=== PATIENT | female | born 1935 | race Caucasian/White ===

== ENCOUNTER 2022-03-28 10:11 | Inpatient (IN) | payer MEDICARE ==
--- NOTE | 2022-03-28 11:00 | ED ---
General Adult HPI - General Chief complaint: Shortness of Breath Stated complaint: SOB,ABD Pain Time Seen by Provider: 03/28/22 10:25 Source: patient, RN notes reviewed, old records reviewed Mode of arrival: wheelchair Limitations: no limitations - History of Present Illness Initial comments: This is an 86 her old female presents emergency department stating that she is not feeling well. Patient states she's mildly nauseated. Patient states she also feels a little more short of breath and has a slight sore throat. This is been ongoing for 2 days. Patient states he just feels terrible all over. Patient denies abdominal pain she states is just nausea. Patient denies any vomiting or diarrhea. Patient states there is a little dysuria but no hematuria or urinary frequency. Patient denies lightheadedness or dizziness. Patient denies any chest pain. Patient states she's normally on oxygen home because of pulmonary fibrosis. Patient denies any back pain. Patient states she does have a mild headache patient denies any numbness or weakness. - Related Data Allergies Allergy/AdvReac Type Severity Reaction Status Date / Time Sulfa (Sulfonamide Allergy Unknown Verified 03/28/22 10:27 Antibiotics) Review of Systems ROS Statement: Those systems with pertinent positive or pertinent negative responses have been documented in the HPI. ROS Other: All systems not noted in ROS Statement are negative. Past Medical History Past Medical History: Hypertension Additional Past Medical History / Comment(s): pulmonary fibrosis History of Any Multi-Drug Resistant Organisms: None Reported Past Surgical History: Orthopedic Surgery, Pacemaker Past Psychological History: No Psychological Hx Reported Smoking Status: Never smoker Past Alcohol Use History: Occasional Past Drug Use History: None Reported General Exam - General Exam Comments Initial Comments: GENERAL: Patient is well-developed and well-nourished. Patient is nontoxic and well- hydrated and is in mild distress. I took an oral temperature the patient was 101.7 ENT: Neck is soft and supple. No significant lymphadenopathy is noted. Oropharynx is clear. Moist mucous membranes. Neck has full range of motion without eliciting any pain. EYES: The sclera were anicteric and conjunctiva were pink and moist. Extraocular movements were intact and pupils were equal round and reactive to light. Eyelids were unremarkable. PULMONARY: Unlabored respirations. Good breath sounds bilaterally. Patient has crackles bilateral bases CARDIOVASCULAR: There is a regular rate and rhythm without any murmurs gallops or rubs. ABDOMEN: Soft and nontender with normal bowel sounds. SKIN: Skin is clear with no lesions or rashes and otherwise unremarkable. NEUROLOGIC: Patient is alert and oriented x3. Cranial nerves II through XII are grossly intact. Motor and sensory are also intact. Normal speech, volume and content. Symmetrical smile. MUSCULOSKELETAL: Normal extremities with adequate strength and full range of motion. LYMPHATICS: No significant lymphadenopathy is noted PSYCHIATRIC: Normal psychiatric evaluation. Limitations: no limitations Course Vital Signs 03/28/22 03/28/22 03/28/22 10:22 10:45 11:15 Temperature 100.4 F H 101.7 F H Pulse Rate 73 Respiratory 21 20 Rate Blood Pressure 137/73 O2 Sat by Pulse 90 L Oximetry 03/28/22 12:27 Temperature 99.7 F H Pulse Rate 71 Respiratory 22 Rate Blood Pressure 108/65 O2 Sat by Pulse 94 L Oximetry Medical Decision Making - Medical Decision Making EKG shows narrow complex rhythm at 72 bpm no discernible P wave is noted QRSs 190 QT interval 355 QTC is 379. Patient's EKG shows no ST segment elevation or depression. No prior patient received 2 g of Rocephin emergency department. Patient received steroids in the emergency department for the pulmonary fibrosis. I spoke with Dr. Jung she agreed to admit the patient and the patient I consulted pulmonology. - Lab Data Result diagrams: 03/28/22 11:02 03/28/22 12:51 Lab Results 03/28/22 03/28/22 03/28/22 Range/Units 11:02 11:02 11:02 WBC 12.3 H (3.8-10.6) k/uL RBC 4.07 (3.80-5.40) m/uL Hgb 13.9 (11.4-16.0) gm/dL Hct 41.2 (34.0-46.0) % MCV 101.3 H (80.0-100.0) fL MCH 34.2 (25.0-35.0) pg MCHC 33.7 (31.0-37.0) g/dL RDW 14.5 (11.5-15.5) % Plt Count 206 (150-450) k/uL MPV 7.5 Neutrophils % 92 % Lymphocytes % 4 % Monocytes % 2 % Eosinophils % 1 % Basophils % 0 % Neutrophils # 11.3 H (1.3-7.7) k/uL Lymphocytes # 0.5 L (1.0-4.8) k/uL Monocytes # 0.3 (0-1.0) k/uL Eosinophils # 0.1 (0-0.7) k/uL Basophils # 0.1 (0-0.2) k/uL Macrocytosis Slight PT 12.2 H (9.0-12.0) sec INR 1.2 H (<1.2) APTT 29.7 (22.0-30.0) sec Sodium (137-145) mmol/L Potassium (3.5-5.1) mmol/L Chloride (98-107) mmol/L Carbon Dioxide (22-30) mmol/L Anion Gap mmol/L BUN (7-17) mg/dL Creatinine (0.52-1.04) mg/dL Est GFR (CKD-EPI)AfAm (>60 ml/min/1.73 sqM) Est GFR (CKD-EPI)NonAf (>60 ml/min/1.73 sqM) Glucose (74-99) mg/dL Plasma Lactic Acid Rodrigo (0.7-2.0) mmol/L Calcium (8.4-10.2) mg/dL Total Bilirubin (0.2-1.3) mg/dL AST (14-36) U/L ALT (4-34) U/L Alkaline Phosphatase (38-126) U/L Total Protein (6.3-8.2) g/dL Albumin (3.5-5.0) g/dL Urine Color Urine Appearance (Clear) Urine pH (5.0-8.0) Ur Specific Fallon (1.001-1.035) Urine Protein (Negative) Urine Glucose (UA) (Negative) Urine Ketones (Negative) Urine Blood (Negative) Urine Nitrite (Negative) Urine Bilirubin (Negative) Urine Urobilinogen (<2.0) mg/dL Ur Leukocyte Esterase (Negative) Urine RBC (0-5) /hpf Urine WBC (0-5) /hpf Urine WBC Clumps (None) /hpf Ur Squamous Epith Cells (0-4) /hpf Urine Bacteria (None) /hpf Hyaline Casts (0-2) /lpf Coronavirus (PCR) Not Detected (Not Detectd) 0803/28/22 03/28/22 Range/Units 11:02 11:02 12:51 WBC (3.8-10.6) k/uL RBC (3.80-5.40) m/uL Hgb (11.4-16.0) gm/dL Hct (34.0-46.0) % MCV (80.0-100.0) fL MCH (25.0-35.0) pg MCHC (31.0-37.0) g/dL RDW (11.5-15.5) % Plt Count (150-450) k/uL MPV Neutrophils % % Lymphocytes % % Monocytes % % Eosinophils % % Basophils % % Neutrophils # (1.3-7.7) k/uL Lymphocytes # (1.0-4.8) k/uL Monocytes # (0-1.0) k/uL Eosinophils # (0-0.7) k/uL Basophils # (0-0.2) k/uL Macrocytosis PT (9.0-12.0) sec INR (<1.2) APTT (22.0-30.0) sec Sodium 134 L (137-145) mmol/L Potassium 3.7 (3.5-5.1) mmol/L Chloride 102 (98-107) mmol/L Carbon Dioxide 17 L (22-30) mmol/L Anion Gap 15 mmol/L BUN 33 H (7-17) mg/dL Creatinine 1.21 H (0.52-1.04) mg/dL Est GFR (CKD-EPI)AfAm 47 (>60 ml/min/1.73 sqM) Est GFR (CKD-EPI)NonAf 41 (>60 ml/min/1.73 sqM) Glucose 129 H (74-99) mg/dL Plasma Lactic Acid Rodrigo 2.4 H* (0.7-2.0) mmol/L Calcium 8.2 L (8.4-10.2) mg/dL Total Bilirubin 1.2 (0.2-1.3) mg/dL AST 35 (14-36) U/L ALT 19 (4-34) U/L Alkaline Phosphatase 94 (38-126) U/L Total Protein 6.4 (6.3-8.2) g/dL Albumin 3.3 L (3.5-5.0) g/dL Urine Color Light Yellow Urine Appearance Cloudy H (Clear) Urine pH 5.5 (5.0-8.0) Ur Specific Fallon 1.020 (1.001-1.035) Urine Protein 2+ H (Negative) Urine Glucose (UA) Negative (Negative) Urine Ketones 1+ H (Negative) Urine Blood Trace (Negative) Urine Nitrite Negative (Negative) Urine Bilirubin Negative (Negative) Urine Urobilinogen <2.0 (<2.0) mg/dL Ur Leukocyte Esterase Large (Negative) Urine RBC 62 H (0-5) /hpf Urine WBC >182 H (0-5) /hpf Urine WBC Clumps Many H (None) /hpf Ur Squamous Epith Cells 16 H (0-4) /hpf Urine Bacteria Many H (None) /hpf Hyaline Casts 27 H (0-2) /lpf Coronavirus (PCR) (Not Detectd) Disposition Clinical Impression: Pneumonia, Pulmonary fibrosis Disposition: ADMITTED IP TO THIS [facility] Referrals: None,Stated [Primary Care Provider] - 1-2 days Time of Disposition: 14:10
[2022-03-28] MEDS ORDERED: ACETAMINOPHEN TAB 500 MG TAB PO STA (11:01)
[2022-03-28] MEDS ORDERED: IBUPROFEN 600 MG TAB PO STA (11:01)
[2022-03-28] MEDS: SODIUM CHLORIDE 0.9% 500 ML 500 ML IV SCH ×2 (11:20→12:18)
[2022-03-28 12:03] LABS: Basophils # (A) 0.1 k/uL (0-0.2); Basophils % (A) 0 %; Eosinophils # (A) 0.1 k/uL (0-0.7); Eosinophils % (A) 1 %; HCT 41.2 % (34.0-46.0); HGB 13.9 gm/dL (11.4-16.0); Lymphocytes # (A) 0.5 k/uL (1.0-4.8); Lymphocytes % (A) 4 %; MCH 34.2 pg (25.0-35.0); MCHC 33.7 g/dL (31.0-37.0); MCV 101.3 fL (80.0-100.0); Macrocytosis Slight; Mean Platelet Volume 7.5; Monocytes # (A) 0.3 k/uL (0-1.0); Monocytes % (A) 2 %; Neutrophils # (A) 11.3 k/uL (1.3-7.7); Neutrophils % (A) 92 %; Platelet Count 206 k/uL (150-450); RBC 4.07 m/uL (3.80-5.40); RDW 14.5 % (11.5-15.5); WBC 12.3 k/uL (3.8-10.6)
--- NOTE | 2022-03-28 12:27 | XR ---
EXAMINATION TYPE: XR chest 2V DATE OF EXAM: 03/28/2022 COMPARISON: NONE HISTORY: Fever, shortness of breath, history of pulmonary fibrosis TECHNIQUE: Frontal and lateral views of the chest are obtained. FINDINGS: Lung volumes are low. Diffuse increased interstitial pattern within the lungs is noted. Pa tient is rotated. Heart is enlarged. There is a generator in the left pectoral region, leads are pres ent in the right atrium and ventricle. No evident pneumothorax or pleural effusion. Aorta is dense. T here are overlying artifacts. Postop change noted to the right humerus. IMPRESSION: Correlate for congestive heart failure. There is cardiomegaly. Expiratory rotated exam. Follow-up recommended. Comparison with old chest x-rays if available may BE of benefit.
[2022-03-28 13:12] LABS: INR 1.2 (<1.2); Partial Thromboplastin Time 29.7 sec (22.0-30.0); Prothrombin Time 12.2 sec (9.0-12.0)
[2022-03-28 13:32] LABS: Albumin 3.3 g/dL (3.5-5.0); Calcium 8.2 mg/dL (8.4-10.2); Potassium 3.7 mmol/L (3.5-5.1); Total Bilirubin 1.2 mg/dL (0.2-1.3); Total Protein 6.4 g/dL (6.3-8.2)
[2022-03-28] MEDS ORDERED: cefTRIAXone IN SWFI 1,000 MG/10 ML SYRINGE IVP STA (13:34)
[2022-03-28 13:55] LABS: Bacteria,Urine Many /hpf; Hyaline Casts,Urine 27 /lpf (0-2); RBC,Urine 62 /hpf (0-5); Squamous Epithelial Cell,Urine 16 /hpf (0-4); WBC,Urine >182 /hpf (0-5)
[2022-03-28 13:56] LABS: Appearance,Urine Cloudy (Clear); Color,Urine Light Yellow; PH, Urine 5.5 (5.0-8.0); Protein,Urine 2+ (Negative)
[2022-03-28 13:57] LABS: Bilirubin,Urine Negative (Negative); Blood,Urine Trace (Negative); Glucose,Urine (UA) Negative (Negative); Ketones,Urine 1+ (Negative); Nitrite,Urine Negative (Negative); Urobilinogen,Urine <2.0 mg/dL (<2.0)
[2022-03-28 13:58] LABS: Leukocyte Esterase,Urine Large (Negative)
[2022-03-28] MEDS ORDERED: methylPREDNISolone SOD SUCCI 125 MG/2 ML VIAL IV STA (14:02)
[2022-03-28] MEDS ORDERED: AZITHROMYCIN 500 MG in SODIUM CHLORIDE 0.9% 250 ML IVPB STA (14:11)
[2022-03-28] MEDS ORDERED: PNEUMONIA PROTOCOL UTILIZED 1 EACH MISC PO PRN (14:11)
[2022-03-28] MEDS ORDERED: NALOXONE 0.4 MG/ML 1 ML VIAL IV PRN (15:50)
[2022-03-28] MEDS ORDERED: ACETAMINOPHEN TAB 325 MG TAB PO PRN (15:50)
[2022-03-28] MEDS ORDERED: IPRATROPIUM-ALBUTEROL 3 ML NEB INHALATION PRN (15:51)
--- NOTE | 2022-03-28 16:02 | P.HPIM ---
History of Present Illness H&P Date: 03/28/22 Chief Complaint: sob 86 her old female with history of pulmonary fibrosis, atrial fibrillation status post AV ablation, hypertension presents emergency department stating that she is not feeling well. Patient started having symptoms of nausea, diarrhea, abdominal discomfort as well as worsening shortness of breath and fatigue over the past 3-4 days. She did have fevers and chills as well. She has a slight sore throat. No vomiting. She also mentioned urinary frequency and urgency but no dysuria. No lightheadedness or dizziness. No chest pain. Due to history of lung fibrosis she is on home oxygen with exertion 3 L. She does not use oxygen at rest. In the emergency department she had a fever with temperature at 101.7. Temp went down with Tylenol. Respiratory vital signs were okay. WBC count was 12.3, hemoglobin 13.9, hematocrit 41, platelet count 206. Sodium 134, potassium 3.7, chloride 102, bicarb 17, BUN 33, creatinine 1.2, glucose 129. Lactic acid 2.4, chest x-ray showed cardiomegaly with increased interstitial pattern unknown if acute or chronic, no old chest x-ray to compare. Review of Systems Complete review of system performed, pertinent positives per HPI, otherwise negative Past Medical History Past Medical History: Hypertension Additional Past Medical History / Comment(s): pulmonary fibrosis History of Any Multi-Drug Resistant Organisms: None Reported Past Surgical History: Orthopedic Surgery, Pacemaker Past Psychological History: No Psychological Hx Reported Smoking Status: Never smoker Past Alcohol Use History: Occasional Past Drug Use History: None Reported Medications and Allergies Allergies Allergy/AdvReac Type Severity Reaction Status Date / Time Sulfa (Sulfonamide Allergy Unknown Verified 03/28/22 10:27 Antibiotics) Physical Exam Vitals: Vital Signs Temp Pulse Resp BP Pulse Ox 03/28/22 12:27 99.7 F H 71 22 108/65 94 L 03/28/22 11:15 20 03/28/22 10:45 101.7 F H 03/28/22 10:22 100.4 F H 73 21 137/73 90 L Intake and Output 03/28/22 03/28/22 03/28/22 06:59 14:59 22:59 Other: Weight 67.585 kg Constitutional: No acute distress, conversant, pleasant Eyes:Anicteric sclerae, moist conjunctiva, no lid-lag, PERRLA, ENMT: Oropharynx clear, no erythema, exudates Neck: Supple, FROM, no masses, or JVD, No carotid bruits, No thyromegaly Lungs: Bilateral crackles more on the bases, Clear to percussion, Normal respiratory effort, no accessory muscle use Cardiovascular: Heart regular in rate and rhythm, No murmurs, gallops, or rubs, No peripheral edema Abdominal: Soft, Nontender, no guarding, rebound or rigidity, Normoactive bowel sounds, No hepatomegaly, No splenomegaly, No palpable mass Skin: Normal temperature, tone, texture, turgor, no induration, No subcutaneous nodules, No rash, lesions, No ulcers Extremities: No digital cyanosis, No clubbing, Pedal pulses intact and symmetrical, Radial pulses intact and symmetrical, No calf tenderness Psychiatric: Alert and oriented to person, place and time, appropriate affect, intact judgement Neuro: Muscles Strength 5/5 in all 4 extremities, Sensation to light touch grossly present throughout, Cranial nerves II-XII grossly intact, no focal sensory deficits Results CBC & Chem 7: 03/28/22 11:02 03/28/22 12:51 Labs: Abnormal Lab Results - Last 24 Hours (Table) 03/28/22 03/28/22 03/28/22 Range/Units 11:02 11:02 11:02 WBC 12.3 H (3.8-10.6) k/uL MCV 101.3 H (80.0-100.0) fL Neutrophils # 11.3 H (1.3-7.7) k/uL Lymphocytes # 0.5 L (1.0-4.8) k/uL PT 12.2 H (9.0-12.0) sec INR 1.2 H (<1.2) Sodium (137-145) mmol/L Carbon Dioxide (22-30) mmol/L BUN (7-17) mg/dL Creatinine (0.52-1.04) mg/dL Glucose (74-99) mg/dL Plasma Lactic Acid Rodrigo (0.7-2.0) mmol/L Calcium (8.4-10.2) mg/dL Albumin (3.5-5.0) g/dL Urine Appearance Cloudy H (Clear) Urine Protein 2+ H (Negative) Urine Ketones 1+ H (Negative) Urine RBC 62 H (0-5) /hpf Urine WBC >182 H (0-5) /hpf Urine WBC Clumps Many H (None) /hpf Ur Squamous Epith Cells 16 H (0-4) /hpf Urine Bacteria Many H (None) /hpf Hyaline Casts 27 H (0-2) /lpf 03/28/22 03/28/22 Range/Units 11:02 12:51 WBC (3.8-10.6) k/uL MCV (80.0-100.0) fL Neutrophils # (1.3-7.7) k/uL Lymphocytes # (1.0-4.8) k/uL PT (9.0-12.0) sec INR (<1.2) Sodium 134 L (137-145) mmol/L Carbon Dioxide 17 L (22-30) mmol/L BUN 33 H (7-17) mg/dL Creatinine 1.21 H (0.52-1.04) mg/dL Glucose 129 H (74-99) mg/dL Plasma Lactic Acid Rodrigo 2.4 H* (0.7-2.0) mmol/L Calcium 8.2 L (8.4-10.2) mg/dL Albumin 3.3 L (3.5-5.0) g/dL Urine Appearance (Clear) Urine Protein (Negative) Urine Ketones (Negative) Urine RBC (0-5) /hpf Urine WBC (0-5) /hpf Urine WBC Clumps (None) /hpf Ur Squamous Epith Cells (0-4) /hpf Urine Bacteria (None) /hpf Hyaline Casts (0-2) /lpf Assessment and Plan Plan: Acute sepsis likely secondary to urinary tract infection Has leukocytosis and fevers Blood cultures 2 Urine cultures Ceftriaxone Shortness of breath likely secondary to exacerbation of pulmonary fibrosis Rule out exacerbation of congestive heart failure Check proBNP and stat troponin Check sputum cultures Ceftriaxone and azithromycin Steroids Bronchodilators Lactic acidosis Monitor for resolution History of atrial fibrillation, chronic History of hypertension Stable Resume meds Admit to inpatient, expected length of stay more than 2 midnights.
[2022-03-28] MEDS: IPRATROPIUM-ALBUTEROL 3 ML NEB INHALATION SCH ×2 (16:51→20:48)
[2022-03-28] MEDS ORDERED: ONDANSETRON 4 MG/2 ML VIAL IVP STA (16:59)
[2022-03-28 17:00] LABS: Glucose,Whole Blood 110 mg/dL (70-110)
[2022-03-28] MEDS ORDERED: ONDANSETRON 4 MG/2 ML VIAL IVP PRN (17:00)
[2022-03-28] MEDS ORDERED: diazePAM 5 MG TAB PO PRN (17:14)
[2022-03-28] MEDS: methylPREDNISolone SOD SUCCI 125 MG/2 ML VIAL IV SCH ×2 (17:50→23:55)
[2022-03-28] MEDS: APIXABAN 2.5 MG TABLET PO SCH (22:10)
[2022-03-29] MEDS: methylPREDNISolone SOD SUCCI 125 MG/2 ML VIAL IV SCH (07:09)
[2022-03-29 07:51] LABS: Basophils % (A) 0 %; Eosinophils # (A) 0.1 k/uL (0-0.7); Eosinophils % (A) 1 %; HCT 37.5 % (34.0-46.0); HGB 12.2 gm/dL (11.4-16.0); Lymphocytes # (A) 0.5 k/uL (1.0-4.8); Lymphocytes % (A) 5 %; MCH 33.1 pg (25.0-35.0); MCHC 32.7 g/dL (31.0-37.0); MCV 101.5 fL (80.0-100.0); Macrocytosis Slight; Mean Platelet Volume 7.7; Monocytes # (A) 0.2 k/uL (0-1.0); Monocytes % (A) 2 %; Neutrophils # (A) 9.3 k/uL (1.3-7.7); Neutrophils % (A) 92 %; Platelet Count 186 k/uL (150-450); RBC 3.69 m/uL (3.80-5.40); RDW 14.1 % (11.5-15.5)
[2022-03-29] MEDS: IPRATROPIUM-ALBUTEROL 3 ML NEB INHALATION SCH ×4 (07:51→20:58)
[2022-03-29 08:13] LABS: Albumin 3.1 g/dL (3.5-5.0); Calcium 7.9 mg/dL (8.4-10.2); Total Bilirubin 0.8 mg/dL (0.2-1.3); Total Protein 6.3 g/dL (6.3-8.2)
--- NOTE | 2022-03-29 08:38 | XR ---
EXAMINATION TYPE: XR chest 2V DATE OF EXAM: 03/29/2022 COMPARISON: 03/28/2022 TECHNIQUE: PA and lateral views submitted. HISTORY: Cough FINDINGS: Heart size is prominent and diffuse interstitial pattern with bilateral infiltrate and pleural effusi on. Cardiac effacing the pneumothorax. Cannot exclude a 1 cm nodule right upper lobe. IMPRESSION: 1. Correlate for CHF versus diffuse interstitial pneumonia. Cannot exclude a 1 cm right upper lobe pu lmonary nodule. Findings stable.
[2022-03-29] MEDS ORDERED: AZITHROMYCIN 500 MG TAB PO SCH (09:00)
[2022-03-29] MEDS: APIXABAN 2.5 MG TABLET PO SCH ×2 (10:26→21:19)
[2022-03-29] MEDS: ESCITALOPRAM 5 MG TAB PO SCH (10:27)
[2022-03-29] MEDS: amLODIPine 5 MG TAB PO SCH (10:27)
[2022-03-29] MEDS: POTASSIUM CHLORIDE ER 10 MEQ TAB.ER.PRT PO SCH (10:27)
[2022-03-29] MEDS: FUROSEMIDE 10 MG/ML 2 ML VIAL IV SCH ×2 (10:50→21:19)
[2022-03-29] MEDS: SODIUM CHLORIDE 0.9% 1,000 ML IV SCH ×2 (10:51→18:35)
--- NOTE | 2022-03-29 11:23 | P.CNPUL ---
History of Present Illness Consult date: 03/29/22 Requesting physician: Mignon Jung Reason for consult: dyspnea, cough, hypoxemia, pulmonary fibrosis, abnormal CXR/CT Chief complaint: Shortness of breath, chronic. Not feeling well. History of present illness: Pulmonary consult dated 03/29/2022. 86-year-old female seen in the emergency department, in room 28. The patient came into the hospital with multiple complaints including shortness of breath, which is more chronic than acute, sore throat, fever, nausea, and weakness. She states that everything started this past Sunday. The patient does have a history of pulmonary fibrosis, diagnosed by a stone finisher, at [facility], by the name of Dr. Mann. The patient does use oxygen at home, from time to time. She also sees a yarn cleaner at [facility]. Currently, she is not on IV fluids, and is receiving oxygen at 3 L. She did not appear to be in any distress. It appears that she may also have a urinary tract infection. In addition, her N-terminal proBNP was elevated. I don't believe that she is having pneumonia at this time. The patient also has a history of hypertension, and previous pacemaker insertion. She was a lifelong nonsmoker. White count 10, hemoglobin 12.2, hematocrit 37.5, and platelet count 186,000. Sodium 134, potassium 4, chlorides 102, CO2 18, BUN 45, and creatinine 1.17. Anion gap is 14. Initial troponin was 0.051. Subsequently, it was 0.030 and 0.023. N- terminal proBNP was 10,200, and the urine was suggestive of a urinary tract infection, with many white blood cell clumps, greater than 182 WBCs, many bacteria, and leukocyte esterase positive. Chest x-ray shows diffuse interstitial changes, likely secondary to pulmonary fibrosis, although, interstitial pneumonia or more likely interstitial edema, cannot be excluded. Review of Systems REVIEW OF SYSTEMS: CONSTITUTIONAL: Weakness, fever. NEUROLOGIC: [ Negative.] HEENT: Sore throat. CARDIAC: [Negative.] PULMONARY: Shortness of breath, chronic, and chronic cough. GI: [Negative.] : [Negative.] RHEUMATOLOGIC: [ Negative.] IMMUNOLOGIC: [ Negative.] ENDOCRINE: [Negative. ] DERMATOLOGIC: [Negative.] Past Medical History Past Medical History: Hypertension Additional Past Medical History / Comment(s): pulmonary fibrosis History of Any Multi-Drug Resistant Organisms: None Reported Past Surgical History: Orthopedic Surgery, Pacemaker Past Psychological History: No Psychological Hx Reported Smoking Status: Never smoker Past Alcohol Use History: Occasional Past Drug Use History: None Reported Medications and Allergies Home Medications Medication Instructions Recorded Confirmed Type Apixaban [Eliquis] 5 mg PO BID 03/28/22 03/28/22 History Escitalopram [Lexapro] 5 mg PO DAILY 03/28/22 03/28/22 History Potassium Chloride ER [K-Dur 20] 10 meq PO DAILY 03/28/22 03/28/22 History amLODIPine [Norvasc] 5 mg PO DAILY 03/28/22 03/28/22 History diazePAM [Valium] 10 mg PO DAILY PRN 03/28/22 03/28/22 History Allergies Allergy/AdvReac Type Severity Reaction Status Date / Time Sulfa (Sulfonamide Allergy Unknown Verified 03/28/22 16:14 Antibiotics) Physical Exam Osteopathic Statement: *. No significant issues noted on an osteopathic structural exam other than those noted in the History and Physical/Consult. Vitals: Vital Signs Temp Pulse Pulse Resp BP BP Pulse Ox 03/29/22 07:53 100 03/29/22 05:19 70 14 95/65 97 03/28/22 22:08 70 19 101/62 93 L 03/28/22 20:48 70 94 L 03/28/22 17:54 70 94/58 03/28/22 17:31 98.1 F 70 70 20 96/59 96/59 94 L 03/28/22 12:27 99.7 F H 71 22 108/65 94 L 03/28/22 11:15 20 No acute distress, oriented 3. Nasal O2 in place at 3 L. HEENT examination is grossly unremarkable. Neck supple. Full range of motion. No adenopathy thyromegaly or neck vein distention. Cardiovascular examination reveals regular rhythm rate. S1-S2 normal. No S3 or S4. No discernible murmur noted. Heart rate 70 bpm. Lungs reveal bibasilar Velcro crackles heard only during inspiration. No wheezes. No rhonchi. Breath sounds equal bilaterally. 3 L saturation is 100%. Abdomen soft bowel sounds are heard. No masses or tenderness. Extremities are intact. No cyanosis clubbing or edema. Skin is without rash or lesion. Neurologic examination is brief but nonfocal. Results - Laboratory Findings CBC and BMP: 03/29/22 07:10 03/29/22 07:10 PT/INR, D-dimer PT 12.2 sec (9.0-12.0) H 03/28/22 11:02 INR 1.2 (<1.2) H 03/28/22 11:02 Abnormal lab findings: Abnormal Labs 03/28/22 03/28/22 03/28/22 11:02 11:02 11:02 WBC 12.3 H RBC MCV 101.3 H Neutrophils # 11.3 H Lymphocytes # 0.5 L PT 12.2 H INR 1.2 H Sodium Carbon Dioxide BUN Creatinine Glucose Plasma Lactic Acid Rodrigo Calcium AST Troponin I Albumin Urine Appearance Cloudy H Urine Protein 2+ H Urine Ketones 1+ H Urine RBC 62 H Urine WBC >182 H Urine WBC Clumps Many H Ur Squamous Epith Cells 16 H Urine Bacteria Many H Hyaline Casts 27 H 03/28/22 03/28/22 03/28/22 11:02 12:51 16:07 WBC RBC MCV Neutrophils # Lymphocytes # PT INR Sodium 134 L Carbon Dioxide 17 L BUN 33 H Creatinine 1.21 H Glucose 129 H Plasma Lactic Acid Rodrigo 2.4 H* Calcium 8.2 L AST Troponin I 0.051 H* Albumin 3.3 L Urine Appearance Urine Protein Urine Ketones Urine RBC Urine WBC Urine WBC Clumps Ur Squamous Epith Cells Urine Bacteria Hyaline Casts 03/29/22 03/29/22 07:10 07:10 WBC RBC 3.69 L MCV 101.5 H Neutrophils # 9.3 H Lymphocytes # 0.5 L PT INR Sodium 134 L Carbon Dioxide 18 L BUN 45 H Creatinine 1.17 H Glucose 172 H Plasma Lactic Acid Rodrigo Calcium 7.9 L AST 50 H Troponin I Albumin 3.1 L Urine Appearance Urine Protein Urine Ketones Urine RBC Urine WBC Urine WBC Clumps Ur Squamous Epith Cells Urine Bacteria Hyaline Casts - Diagnostic Findings Chest x-ray: image reviewed Assessment and Plan Assessment: Nonspecific complaints of fever and weakness, likely related to urinary tract infection. Shortness of breath, with cough, chronic, likely related to interstitial lung disease/pulmonary fibrosis. Rule out interstitial edema/CHF. Doubt pneumonia. History of hypertension. History of pacemaker insertion. Lifelong nontobacco user. Plan: Plan dated 03/29/2022. Currently, the patient is on Zithromax and Rocephin. The Zithromax can likely be discontinued. The patient is likely suffering from a urinary tract infec tion. I doubt pneumonia. In addition, the patient does not need corticosteroids. That would be contraindicated. Labs, x-rays, and medications are reviewed. The patient will need to follow with her stone finisher at [facility]. We did order a pro-calcitonin level. No additional recommendations are made. Prognosis is guarded. Time with Patient: Greater than 30
--- NOTE | 2022-03-29 13:26 | P.PN ---
Subjective Progress Note Date: 03/29/22 Principal diagnosis: sob Patient is feeling a little better today. She denied having significant shortness of breath or chest pain. No fevers or chills. No nausea or vomiting. Objective - Vital Signs Vital signs: Vital Signs Temp 98.1 F 03/28/22 17:31 Pulse 71 03/29/22 11:27 Resp 18 03/29/22 11:27 BP 95/65 03/29/22 05:19 Pulse Ox 100 03/29/22 07:53 FiO2 Intake & Output 03/28/22 03/29/22 03/29/22 18:59 06:59 18:59 Weight 67.585 kg - Exam Constitutional: No acute distress, conversant, pleasant Eyes:Anicteric sclerae, moist conjunctiva, no lid-lag, PERRLA, ENMT: Oropharynx clear, no erythema, exudates Neck: Supple, FROM, no masses, or JVD, No carotid bruits, No thyromegaly Lungs: Bilateral crackles more on the bases, Clear to percussion, Normal respiratory effort, no accessory muscle use Cardiovascular: Heart regular in rate and rhythm, No murmurs, gallops, or rubs, No peripheral edema Abdominal: Soft, Nontender, no guarding, rebound or rigidity, Normoactive bowel sounds, No hepatomegaly, No splenomegaly, No palpable mass Skin: Normal temperature, tone, texture, turgor, no induration, No subcutaneous nodules, No rash, lesions, No ulcers Extremities: No digital cyanosis, No clubbing, Pedal pulses intact and symme trical, Radial pulses intact and symmetrical, No calf tenderness Psychiatric: Alert and oriented to person, place and time, appropriate affect, intact judgement Neuro: Muscles Strength 5/5 in all 4 extremities, Sensation to light touch grossly present throughout, Cranial nerves II-XII grossly intact, no focal sensory deficits - Labs CBC & Chem 7: 03/29/22 07:10 03/29/22 07:10 Labs: Abnormal Lab Results - Last 24 Hours (Table) 03/28/22 03/28/22 03/28/22 Range/Units 11:02 12:51 16:07 RBC (3.80-5.40) m/uL MCV (80.0-100.0) fL Neutrophils # (1.3-7.7) k/uL Lymphocytes # (1.0-4.8) k/uL Sodium 134 L (137-145) mmol/L Carbon Dioxide 17 L (22-30) mmol/L BUN 33 H (7-17) mg/dL Creatinine 1.21 H (0.52-1.04) mg/dL Glucose 129 H (74-99) mg/dL Calcium 8.2 L (8.4-10.2) mg/dL AST (14-36) U/L Troponin I 0.051 H* (0.000-0.034) ng/mL Albumin 3.3 L (3.5-5.0) g/dL Urine Appearance Cloudy H (Clear) Urine Protein 2+ H (Negative) Urine Ketones 1+ H (Negative) Urine RBC 62 H (0-5) /hpf Urine WBC >182 H (0-5) /hpf Urine WBC Clumps Many H (None) /hpf Ur Squamous Epith Cells 16 H (0-4) /hpf Urine Bacteria Many H (None) /hpf Hyaline Casts 27 H (0-2) /lpf 03/29/22 03/29/22 Range/Units 07:10 07:10 RBC 3.69 L (3.80-5.40) m/uL MCV 101.5 H (80.0-100.0) fL Neutrophils # 9.3 H (1.3-7.7) k/uL Lymphocytes # 0.5 L (1.0-4.8) k/uL Sodium 134 L (137-145) mmol/L Carbon Dioxide 18 L (22-30) mmol/L BUN 45 H (7-17) mg/dL Creatinine 1.17 H (0.52-1.04) mg/dL Glucose 172 H (74-99) mg/dL Calcium 7.9 L (8.4-10.2) mg/dL AST 50 H (14-36) U/L Troponin I (0.000-0.034) ng/mL Albumin 3.1 L (3.5-5.0) g/dL Urine Appearance (Clear) Urine Protein (Negative) Urine Ketones (Negative) Urine RBC (0-5) /hpf Urine WBC (0-5) /hpf Urine WBC Clumps (None) /hpf Ur Squamous Epith Cells (0-4) /hpf Urine Bacteria (None) /hpf Hyaline Casts (0-2) /lpf Microbiology - Last 24 Hours (Table) 03/28/22 11:02 Urine Culture - Preliminary Urine,Voided Assessment and Plan Plan: Acute sepsis likely secondary to urinary tract infection Has leukocytosis and fevers Blood cultures 2 Urine cultures pending Ceftriaxone Elevated troponin Trended down, likely sec to sepsis above Echo done, awaiting results. Shortness of breath likely secondary to exacerbation of pulmonary fibrosis Check sputum cultures Pulm consulted doubt pneumonia, no steroids indicated. Bronchodilators Lactic acidosis Monitor for resolution History of atrial fibrillation, chronic History of hypertension Stable Resume meds
--- NOTE | 2022-03-29 19:16 | CA ---
Transthoracic Echo Report Name: Jaylin Cummings Age: 86 Gender: F : 1935 Exam Date: 03/29/2022 09:30 Exam Location: [facility] Ht (in): 63 Wt (lb): 149 Ordering Physician: Mohini Delacruz Attending/Referring Phys: Gas Truck Driver Jayda Gonsalez RDCS Procedure CPT: Indications: elevated troponin Cardiac Hx: Technical Quality: Good Contrast 1: Total Dose (mL): Contrast 2: Total Dose (mL): MEASUREMENTS (Male / Female) Normal Values 2D ECHO LV Diastolic Diameter PLAX 3.3 cm 4.2 - 5.9 / 3.9 - 5.3 cm LV Systolic Diameter PLAX 2.4 cm IVS Diastolic Thickness 1.0 cm 0.6 - 1.0 / 0.6 - 0.9 cm LVPW Diastolic Thickness 1.2 cm 0.6 - 1.0 / 0.6 - 0.9 cm LV Relative Wall Thickness 0.7 RV Internal Dim ED PLAX 4.1 cm LA Systolic Diameter LX 3.7 cm 3.0 - 4.0 / 2.7 - 3.8 cm M-MODE Aortic Root Diameter MM 2.9 cm LA Systolic Diameter MM 3.6 cm LA Ao Ratio MM 1.3 MV E Point Septal Separation 0.6 cm AV Cusp Separation MM 1.9 cm DOPPLER TR Peak Velocity 234.3 cm/s TR Peak Gradient 22.0 mmHg Right Ventricular Systolic Press 36.3 mmHg FINDINGS Left Ventricle Normal Left ventricular size, wall thickness, left ventricular ejection fraction is estimated at 55-60%. Right Ventricle Severe right ventricular dilatation. Mild pulmonary hypertension. Reduced right ventricular global systolic function. Catheter/pacemaker wire in the right ventricular cavity. Right Atrium Normal right atrial size. Left Atrium Normal left atrial size. Mitral Valve Structurally normal mitral valve. Mild mitral regurgitation. Aortic Valve Trileaflet aortic valve. Aortic valve sclerosis.mild aortic regurgitation. Tricuspid Valve Severe tricuspid regurgitation.structurally normal tricuspid valve. Pulmonic Valve Pulmonic valve not well visualized. Pericardium Normal pericardium. Aorta Normal size aortic root and proximal ascending aorta. CONCLUSIONS 1. Normal left ventricle size and systolic function 2. Mild mitral and aortic regurgitation 3. Severely dilated right ventricle with decreased systolic function and severe tricuspid regurgitation 4. Mild pulmonary hypertension Previewed by: Dr. Evelina Herman MD (Electronically Signed) Final Date: 29 March 2022 19:14
[2022-03-29] MEDS: ONDANSETRON 4 MG TAB PO PRN (21:19)
--- NOTE | 2022-03-30 00:01 | CONS ---
CONSULTATION HISTORY OF PRESENT ILLNESS: This is an 86-year-old lady, who has been admitted to the hospital for multiple reasons, and I was asked to see her in view of her shortness of breath. She comes in to the hospital with a number of reasons. She has most of her health care in the [place] area at [facility]. Her main complaint on arrival here is that she has pulmonary fibrosis, chronic atrial fib, a pacemaker with previous AV ablation, details are not substantiated. She has complained of nausea, abdominal pain, and shortness of breath. She has no chest pain. She is comfortable at the time of my evaluation. She has an underlying pacemaker that seems to be functioning well and her underlying rhythm is atrial fibrillation. There is also a question of sepsis as well. She has leukocytosis and fever, and blood cultures are being checked. I do not believe we are dealing with any significant overt heart failure at this time. She chronically probably has an elevated BNP. I am suggesting that we will place her on IV Lasix and 0.9 saline 50 mL/hr, obtain echocardiogram. She may have some diastolic dysfunction. Please refer to the detailed note by the admitting doctor. PHYSICAL EXAMINATION: VITAL SIGNS: On examination, blood pressure is 108/70 and pulse rate is 70 per minute. HEENT: Unremarkable. Fundus was not examined by me. NECK: Supple. There is JVD of 1 cm. No carotid bruit. HEART: S1 and S2 heard normally. Short systolic murmur noted. LUNGS: Diminished air entry. ABDOMEN: Soft. LOWER EXTREMITIES: Trace edema. Diminished pulses. CENTRAL NERVOUS SYSTEM: Grossly no focal deficits. DIAGNOSTIC DATA: EKG reveals an underlying atrial fibrillation with a rate of about 72 beats per minute and rhythm strip reveals paced beats. There is a leftward axis noted. No acute changes. IMPRESSION: 1. Probably chronic diastolic heart failure. 2. Chronic atrial fibrillation, sick sinus syndrome, and permanent pacemaker. 3. Probable pulmonary fibrosis. 4. Hypertension. RECOMMENDATIONS: I would recommend cautious diuresis, check echocardiogram, and based on clinical course, we will make further recommendations. The patient already has some workup for sepsis in the process. Thank you very much for the consult. MMODL / IJN: [id number] /
[2022-03-30] MEDS: IPRATROPIUM-ALBUTEROL 3 ML NEB INHALATION SCH ×5 (08:28→21:24)
[2022-03-30 08:30] LABS: Calcium 8.4 mg/dL (8.4-10.2); Magnesium 2.2 mg/dL (1.6-2.3); Potassium 3.6 mmol/L (3.5-5.1)
[2022-03-30] MEDS: ONDANSETRON 4 MG TAB PO PRN (09:43)
[2022-03-30] MEDS: amLODIPine 5 MG TAB PO SCH (09:46)
[2022-03-30] MEDS: POTASSIUM CHLORIDE ER 10 MEQ TAB.ER.PRT PO SCH (09:46)
[2022-03-30] MEDS: FUROSEMIDE 10 MG/ML 2 ML VIAL IV SCH ×2 (09:46→21:23)
[2022-03-30] MEDS: APIXABAN 2.5 MG TABLET PO SCH ×2 (09:46→21:22)
[2022-03-30] MEDS: ESCITALOPRAM 5 MG TAB PO SCH (09:47)
--- NOTE | 2022-03-30 12:33 | P.PN ---
Subjective Progress Note Date: 03/30/22 Principal diagnosis: Sepsis. Pulmonary consult dated 03/29/2022. 86-year-old female seen in the emergency department, in room 28. The patient came into the hospital with multiple complaints including shortness of breath, which is more chronic than acute, sore throat, fever, nausea, and weakness. She states that everything started this past Sunday. The patient does have a history of pulmonary fibrosis, diagnosed by a longwall foreman, at [facility], by the name of Dr. Mann. The patient does use oxygen at home, from time to time. She also sees a foundation digger at [facility]. Currently, she is not on IV fluids, and is receiving oxygen at 3 L. She did not appear to be in any distress. It appears that she may also have a urinary tract infection. In addition, her N-terminal proBNP was elevated. I don't believe that she is having pneumonia at this time. The patient also has a history of hypertension, and previous pacemaker insertion. She was a lifelong nonsmoker. White count 10, hemoglobin 12.2, hematocrit 37.5, and platelet count 186,000. Sodium 134, potassium 4, chlorides 102, CO2 18, BUN 45, and creatinine 1.17. Anion gap is 14. Initial troponin was 0.051. Subsequently, it was 0.030 and 0.023. N- terminal proBNP was 10,200, and the urine was suggestive of a urinary tract infection, with many white blood cell clumps, greater than 182 WBCs, many bacteria, and leukocyte esterase positive. Chest x-ray shows diffuse interstitial changes, likely secondary to pulmonary fibrosis, although, interstitial pneumonia or more likely interstitial edema, cannot be excluded. Progress note dated 03/30/2022. 86-year-old female seen in consultation yesterday in the emergency department. The patient was discovered to have a urinary tract infection. She does have a history of pulmonary fibrosis, and was seeing a longwall foreman at [facility]. Her primary care physician is in this area. She also sees a foundation digger at [facility]. Currently, she is getting saline at 50 mL an hour. She's getting oxygen at 2 L. There are gram-negative bacilli in her urine. Labs today include a sodium 135, potassium 3.6, chlorides 103, CO2 18, anion gap 14, BUN 48, and creatinine 1.11. Pro-calcitonin level is 2.57. Objective - Vital Signs Vital signs: Vital Signs Temp 97.6 F 03/30/22 09:35 Pulse 76 03/30/22 11:35 Resp 16 03/30/22 09:35 BP 110/67 03/30/22 09:35 Pulse Ox 93 L 03/30/22 09:35 FiO2 Intake & Output 03/29/22 03/30/22 03/30/22 18:59 06:59 18:59 Intake Total 118 Output Total 300 Balance -182 Weight 67.585 kg 72.3 kg Intake: Oral 118 Output: Urine 300 Other: Voiding Method Toilet Toilet # Voids 3 - Exam No acute distress, oriented 3. Nasal O2 in place at 2 L. HEENT examination is grossly unremarkable. Neck supple. Full range of motion. No adenopathy thyromegaly or neck vein distention. Cardiovascular examination reveals regular rhythm rate. S1-S2 normal. No S3 or S4. No discernible murmur noted. Heart rate 76 bpm. Lungs reveal bibasilar Velcro crackles heard only during inspiration. No wheezes. No rhonchi. Breath sounds equal bilaterally. 2 L saturation is 93 %. Abdomen soft bowel sounds are heard. No masses or tenderness. Extremities are intact. No cyanosis clubbing or edema. Skin is without rash or lesion. Neurologic examination is brief but nonfocal. - Labs CBC & Chem 7: 03/29/22 07:10 03/30/22 07:39 Labs: Abnormal Lab Results - Last 24 Hours (Table) 03/29/22 03/30/22 Range/Units 07:10 07:39 Sodium 135 L (137-145) mmol/L Carbon Dioxide 18 L (22-30) mmol/L BUN 48 H (7-17) mg/dL Creatinine 1.11 H (0.52-1.04) mg/dL Glucose 187 H (74-99) mg/dL Procalcitonin 2.57 H (0.02-0.09) ng/mL Microbiology - Last 24 Hours (Table) 03/28/22 11:02 Urine Culture - Preliminary Urine,Voided Gram Neg Bacilli 03/28/22 11:02 Blood Culture - Preliminary Blood No Growth after 24 hours 03/28/22 11:05 Blood Culture - Preliminary Blood No Growth after 24 hours Assessment and Plan Assessment: Nonspecific complaints of fever and weakness, likely related to urinary tract infection. Shortness of breath, with cough, chronic, likely related to interstitial lung disease/pulmonary fibrosis. Rule out interstitial edema/CHF. Doubt pneumonia. History of hypertension. History of pacemaker insertion. Lifelong nontobacco user. Plan: Plan dated 03/29/2022. Currently, the patient is on Zithromax and Rocephin. The Zithromax can likely be discontinued. The patient is likely suffering from a urinary tract infection. I doubt pneumonia. In addition, the patient does not need corticosteroids. That would be contraindicated. Labs, x-rays, and medications are reviewed. The patient will need to follow with her longwall foreman at [facility]. We did order a pro-calcitonin level. No additional recommendations are made. Prognosis is guarded. Plan dated 03/30/2022. The patient is doing a bit better today. There were gram-negative bacilli in the urine. He is currently on Rocephin. It is likely Escherichia coli but has not been identified as yet. The patient likely does not have pneumonia. She does have interstitial lung disease/pulmonary fibrosis. We will continue to follow make recommendations were appropriate. Pro-calcitonin is elevated suggesting the urinary tract infection along with the abnormal urinalysis. Labs, x-rays, and medications are all reviewed. Time with Patient: Less than 30
[2022-03-30 14:51] VITALS: BMI 28.2
--- NOTE | 2022-03-30 15:22 | P.PN ---
Subjective Progress Note Date: 03/30/22 Principal diagnosis: sob Patient is not feeling a lot better compared to when she came in. She said having shortness of breath, no chest pain. Still feeling generally weak and h aving nausea. No fevers or chills. No vomiting. Objective - Vital Signs Vital signs: Vital Signs Temp 97.6 F 03/30/22 09:35 Pulse 72 03/30/22 15:07 Resp 16 03/30/22 09:35 BP 110/67 03/30/22 09:35 Pulse Ox 93 L 03/30/22 09:35 FiO2 Intake & Output 03/29/22 03/30/22 03/30/22 18:59 06:59 18:59 Intake Total 236 Output Total 300 Balance -64 Weight 67.585 kg 72.3 kg 72.3 kg Intake: Oral 236 Output: Urine 300 Other: Voiding Method Toilet Toilet # Voids 3 - Exam Constitutional: No acute distress, conversant, pleasant Eyes:Anicteric sclerae, moist conjunctiva, no lid-lag, PERRLA, ENMT: Oropharynx clear, no erythema, exudates Neck: Supple, FROM, no masses, or JVD, No carotid bruits, No thyromegaly Lungs: Bilateral crackles more on the bases, Clear to percussion, Normal respiratory effort, no accessory muscle use Cardiovascular: Heart regular in rate and rhythm, No murmurs, gallops, or rubs, No peripheral edema Abdominal: Soft, Nontender, no guarding, rebound or rigidity, Normoactive bowel sounds, No hepatomegaly, No splenomegaly, No palpable mass Skin: Normal temperature, tone, texture, turgor, no induration, No subcutaneous nodules, No rash, lesions, No ulcers Extremities: No digital cyanosis, No clubbing, Pedal pulses intact and symmetrical, Radial pulses intact and symmetrical, No calf tenderness Psychiatric: Alert and oriented to person, place and time, appropriate affect, intact judgement Neuro: Muscles Strength 5/5 in all 4 extremities, Sensation to light touch grossly present throughout, Cranial nerves II-XII grossly intact, no focal sensory deficits - Labs CBC & Chem 7: 03/29/22 07:10 03/30/22 07:39 Labs: Abnormal Lab Results - Last 24 Hours (Table) 03/30/22 Range/Units 07:39 Sodium 135 L (137-145) mmol/L Carbon Dioxide 18 L (22-30) mmol/L BUN 48 H (7-17) mg/dL Creatinine 1.11 H (0.52-1.04) mg/dL Glucose 187 H (74-99) mg/dL Microbiology - Last 24 Hours (Table) 03/28/22 11:02 Blood Culture - Preliminary Blood No Growth after 48 hours 03/28/22 11:05 Blood Culture - Preliminary Blood No Growth after 48 hours 03/28/22 11:02 Urine Culture - Preliminary Urine,Voided Gram Neg Bacilli Assessment and Plan Plan: Acute sepsis likely secondary to urinary tract infection Has leukocytosis and fevers Blood cultures 2 Urine cultures growing gram-negative bacilli. Continue ceftriaxone Elevated troponin Seen by cardiology Likely no ACS Trended down, likely sec to sepsis above Echo done, showing normal ejection fraction, dilated right ventricle with decreased function, severe tricuspid regurgitation Shortness of breath likely secondary to exacerbation of right sided congestive heart failure Pulm consulted doubt pneumonia, no steroids indicated. Bronchodilators Gentle diuresis with lasix IV per cardiology Lactic acidosis Monitor for resolution Insomnia Will order melatonin History of atrial fibrillation, chronic History of hypertension Stable Resume meds General weakness PT Anticipated discharge: home in 1-2 days
[2022-03-30] MEDS: MELATONIN 3 MG TABLET PO SCH (21:22)
[2022-03-30] MEDS ORDERED: diphenhydrAMINE 25 MG CAP PO PRN (21:59)
[2022-03-31] MEDS: ONDANSETRON 4 MG TAB PO PRN (01:32)
[2022-03-31] MEDS: SODIUM CHLORIDE 0.9% 1,000 ML IV SCH (03:50)
[2022-03-31] MEDS: IPRATROPIUM-ALBUTEROL 3 ML NEB INHALATION SCH ×4 (07:18→20:30)
[2022-03-31 08:13] VITALS: RESP 18
[2022-03-31] MEDS: FUROSEMIDE 10 MG/ML 2 ML VIAL IV SCH ×2 (08:14→20:56)
[2022-03-31] MEDS: POTASSIUM CHLORIDE ER 10 MEQ TAB.ER.PRT PO SCH (08:14)
[2022-03-31] MEDS: APIXABAN 2.5 MG TABLET PO SCH ×2 (08:14→20:56)
[2022-03-31] MEDS: amLODIPine 5 MG TAB PO SCH (08:14)
[2022-03-31] MEDS: ESCITALOPRAM 5 MG TAB PO SCH (08:14)
--- NOTE | 2022-03-31 12:32 | P.PN ---
Subjective Progress Note Date: 03/31/22 Principal diagnosis: Sepsis. Pulmonary consult dated 03/29/2022. 86-year-old female seen in the emergency department, in room 28. The patient came into the hospital with multiple complaints including shortness of breath, which is more chronic than acute, sore throat, fever, nausea, and weakness. She states that everything started this past Sunday. The patient does have a history of pulmonary fibrosis, diagnosed by a grinder operator external tool, at [facility], by the name of Dr. Mann. The patient does use oxygen at home, from time to time. She also sees a carbon setter at [facility]. Currently, she is not on IV fluids, and is receiving oxygen at 3 L. She did not appear to be in any distress. It appears that she may also have a urinary tract infection. In addition, her N-terminal proBNP was elevated. I don't believe that she is having pneumonia at this time. The patient also has a history of hypertension, and previous pacemaker insertion. She was a lifelong nonsmoker. White count 10, hemoglobin 12.2, hematocrit 37.5, and platelet count 186,000. Sodium 134, potassium 4, chlorides 102, CO2 18, BUN 45, and creatinine 1.17. Anion gap is 14. Initial troponin was 0.051. Subsequently, it was 0.030 and 0.023. N- terminal proBNP was 10,200, and the urine was suggestive of a urinary tract infection, with many white blood cell clumps, greater than 182 WBCs, many bacteria, and leukocyte esterase positive. Chest x-ray shows diffuse interstitial changes, likely secondary to pulmonary fibrosis, although, interstitial pneumonia or more likely interstitial edema, cannot be excluded. Progress note dated 03/30/2022. 86-year-old female seen in consultation yesterday in the emergency department. The patient was discovered to have a urinary tract infection. She does have a history of pulmonary fibrosis, and was seeing a grinder operator external tool at [facility]. Her primary care physician is in this area. She also sees a carbon setter at [facility]. Currently, she is getting saline at 50 mL an hour. She's getting oxygen at 2 L. There are gram-negative bacilli in her urine. Labs today include a sodium 135, potassium 3.6, chlorides 103, CO2 18, anion gap 14, BUN 48, and creatinine 1.11. Pro-calcitonin level is 2.57. Progress note dated 03/31/2022. 86-year-old female seen in consultation at couple days ago. She was admitted with a urinary tract infection and possible urosepsis. She does have a history of pulmonary fibrosis, and sees a grinder operator external tool at [facility]. Currently, she is on 2 L of oxygen. She's getting saline at 20 mL an hour. The urine sample showed evidence of Escherichia coli and she is on Rocephin. No new labs today. Objective - Vital Signs Vital signs: Vital Signs Temp 97.9 F 03/31/22 08:00 Pulse 70 03/31/22 08:00 Resp 18 03/31/22 08:00 BP 115/73 03/31/22 08:00 Pulse Ox 95 03/31/22 08:00 FiO2 Intake & Output 03/30/22 03/31/22 03/31/22 18:59 06:59 18:59 Intake Total 354 1140 Output Total 600 200 Balance -246 1140 -200 Weight 72.3 kg 73.5 kg Intake: Intake, IV Titration 600 Amount Sodium Chloride 0.9% 1, 600 000 ml @ 50 mls/hr IV . Q20H [facility] Rx#:[id number] Oral 354 540 Output: Urine 600 200 Other: Voiding Method Toilet Toilet # Voids 1 - Exam No acute distress, oriented 3. Nasal O2 in place at 2 L. HEENT examination is grossly unremarkable. Neck supple. Full range of motion. No adenopathy thyromegaly or neck vein distention. Cardiovascular examination reveals regular rhythm rate. S1-S2 normal. No S3 or S4. No discernible murmur noted. Heart rate 72 bpm. Lungs reveal bibasilar Velcro crackles heard only during inspiration. No w heezes. No rhonchi. Breath sounds equal bilaterally. 2 L saturation is 95 %. Abdomen soft bowel sounds are heard. No masses or tenderness. Extremities are intact. No cyanosis clubbing or edema. Skin is without rash or lesion. Neurologic examination is brief but nonfocal. - Labs CBC & Chem 7: 03/29/22 07:10 03/30/22 07:39 Labs: Microbiology - Last 24 Hours (Table) 03/28/22 11:02 Urine Culture - Final Urine,Voided Escherichia coli 03/28/22 11:02 Blood Culture - Preliminary Blood No Growth after 48 hours 03/28/22 11:05 Blood Culture - Preliminary Blood No Growth after 48 hours Assessment and Plan Assessment: Nonspecific complaints of fever and weakness, likely related to urinary tract infection, secondary to Escherichia coli. Shortness of breath, with cough, chronic, likely related to interstitial lung disease/pulmonary fibrosis. Rule out interstitial edema/CHF. Doubt pneumonia. History of hypertension. History of pacemaker insertion. Lifelong nontobacco user. Plan: Plan dated 03/29/2022. Currently, the patient is on Zithromax and Rocephin. The Zithromax can likely be discontinued. The patient is likely suffering from a urinary tract infection. I doubt pneumonia. In addition, the patient does not need corticosteroids. That would be contraindicated. Labs, x-rays, and medications are reviewed. The patient will need to follow with her grinder operator external tool at [facility]. We did order a pro-calcitonin level. No additional recommendations are made. Prognosis is guarded. Plan dated 03/30/2022. The patient is doing a bit better today. There were gram-negative bacilli in the urine. He is currently on Rocephin. It is likely Escherichia coli but has not been identified as yet. The patient likely does not have pneumonia. She does have interstitial lung disease/pulmonary fibrosis. We will continue to follow make recommendations were appropriate. Pro-calcitonin is elevated suggesting the urinary tract infection along with the abnormal urinalysis. Labs, x-rays, and medications are all reviewed. Plan dated 03/31/2022. The patient's doing well. From the pulmonary standpoint, she could be discharged. We'll see in the office after discharge. Moving forward, we will see the patient only as needed. No additional recommendations are made. Time with Patient: Less than 30
--- NOTE | 2022-03-31 14:03 | P.PN ---
Subjective Progress Note Date: 03/31/22 Principal diagnosis: sob Patient is still feeling very weak and short of breath especially with ambulation. She denied having any worsening cough. No urinary symptoms. No fevers or chills. No nausea or vomiting. Objective - Vital Signs Vital signs: Vital Signs Temp 97.8 F 03/31/22 12:00 Pulse 70 03/31/22 13:25 Resp 18 03/31/22 12:35 BP 108/79 03/31/22 12:00 Pulse Ox 95 03/31/22 13:25 FiO2 Intake & Output 03/30/22 03/31/22 03/31/22 18:59 06:59 18:59 Intake Total 354 1140 Output Total 600 200 Balance -246 1140 -200 Weight 72.3 kg 73.5 kg Intake: Intake, IV Titration 600 Amount Sodium Chloride 0.9% 1, 600 000 ml @ 50 mls/hr IV . Q20H CARLOS Rx#:[id number] Oral 354 540 Output: Urine 600 200 Other: Voiding Method Toilet Toilet # Voids 1 - Exam Constitutional: No acute distress, conversant, pleasant Eyes:Anicteric sclerae, moist conjunctiva, no lid-lag, PERRLA, ENMT: Oropharynx clear, no erythema, exudates Neck: Supple, FROM, no masses, or JVD, No carotid bruits, No thyromegaly Lungs: Bilateral crackles more on the bases, Clear to percussion, Normal respiratory effort, no accessory muscle use Cardiovascular: Heart regular in rate and rhythm, No murmurs, gallops, or rubs, No peripheral edema Abdominal: Soft, Nontender, no guarding, rebound or rigidity, Normoactive bowel sounds, No hepatomegaly, No splenomegaly, No palpable mass Skin: Normal temperature, tone, texture, turgor, no induration, No subcutaneous nodules, No rash, lesions, No ulcers Extremities: No digital cyanosis, No clubbing, Pedal pulses intact and symmetrical, Radial pulses intact and symmetrical, No calf tenderness Psychiatric: Alert and oriented to person, place and time, appropriate affect, intact judgement Neuro: Muscles Strength 5/5 in all 4 extremities, Sensation to light touch grossly present throughout, Cranial nerves II-XII grossly intact, no focal s ensory deficits - Labs CBC & Chem 7: 03/29/22 07:10 03/30/22 07:39 Labs: Microbiology - Last 24 Hours (Table) 03/28/22 11:02 Blood Culture - Preliminary Blood No Growth after 72 hours 03/28/22 11:05 Blood Culture - Preliminary Blood No Growth after 72 hours 03/28/22 11:02 Urine Culture - Final Urine,Voided Escherichia coli Assessment and Plan Plan: Acute sepsis likely secondary to urinary tract infection Has leukocytosis and fevers Blood cultures negative Urine cultures growing pansensitive e. coli Continue ceftriaxone Elevated troponin Seen by cardiology Likely no ACS Trended down, likely sec to sepsis above Echo done, showing normal ejection fraction, dilated right ventricle with decreased function, severe tricuspid regurgitation Shortness of breath likely secondary to exacerbation of right sided congestive heart failure Pulm consulted doubt pneumonia, no steroids indicated. Bronchodilators Gentle diuresis with lasix IV per cardiology Lactic acidosis Monitor for resolution Insomnia Melatonin prn History of atrial fibrillation, chronic History of hypertension Stable Resume meds General weakness PT Anticipated discharge: rehab in 1-2 days
[2022-03-31] MEDS: MELATONIN 3 MG TABLET PO SCH (20:56)
[2022-04-01] MEDS: IPRATROPIUM-ALBUTEROL 3 ML NEB INHALATION SCH ×2 (07:13→11:13)
[2022-04-01] MEDS: SODIUM CHLORIDE 0.9% 1,000 ML IV SCH ×2 (08:34→10:59)
[2022-04-01] MEDS: FUROSEMIDE 10 MG/ML 2 ML VIAL IV SCH (08:34)
[2022-04-01] MEDS: ESCITALOPRAM 5 MG TAB PO SCH (08:35)
[2022-04-01] MEDS: APIXABAN 2.5 MG TABLET PO SCH (08:35)
[2022-04-01] MEDS: POTASSIUM CHLORIDE ER 10 MEQ TAB.ER.PRT PO SCH (08:35)
[2022-04-01 09:40] LABS: Calcium 8.5 mg/dL (8.4-10.2); Potassium 3.8 mmol/L (3.5-5.1)
--- NOTE | 2022-04-01 09:40 | P.DS ---
Providers Date of admission: 03/28/22 14:11 Expected date of discharge: 04/01/22 Attending physician: Mignon Jung DO Consults: 03/28/22 14:11 Consult Physician Routine Consulting Provider: Dominic Nugent Consult Reason/Comments: Pneumonia, history of pulmonary fibrosis Do you want consulting provider notified?: Yes 03/31/22 14:01 Consult Physician Routine Consulting Provider: Crow Blakely Consult Reason/Comments: chf Do you want consulting provider notified?: Yes Primary care physician: Stated None Hospital Course: 86 her old female with history of pulmonary fibrosis, atrial fibrillation status post AV ablation, hypertension presents emergency department stating that she is not feeling well. Patient started having symptoms of nausea, diarrhea, abdominal discomfort as well as worsening shortness of breath and fatigue over the past 3-4 days. She did have fevers and chills as well. She has a slight sore throat. No vomiting. She also mentioned urinary frequency and urgency but no dysuria. No lightheadedness or dizziness. No chest pain. Due to history of lung fibrosis she is on home oxygen with exertion 3 L. She does not use oxygen at rest. In the emergency department she had a fever with temperature at 101.7. Temp went down with Tylenol. Respiratory vital signs were okay. WBC count was 12.3, hemoglobin 13.9, hematocrit 41, platelet count 206. Sodium 134, potassium 3.7, chloride 102, bicarb 17, BUN 33, creatinine 1.2, glucose 129. Lactic acid 2.4, chest x-ray showed cardiomegaly with increased interstitial pattern unknown if acute or chronic, no old chest x-ray to compare. Patient was admitted, she was seen by pulmonary and cardiology services. Cardiology thought that her symptoms were most likely due to sepsis from UTI. No acute cardiac events were evident. Patient was treated with ceftriaxone IV. She grew E. coli in the urine. Blood cultures remained negative. Patient also had a slightly elevated troponin and that was not considered cardiac in origin according to cardiology. Echo done, showing normal ejection fraction, dilated right ventricle with decreased function, severe tricuspid regurgitation. I think her shortness of breath has a component of exacerbation of right sided congestive heart failure. Due to that he was diuresed with IV Lasix. I was consulted as well, no pneumonia was suspected. He does have chronic pulmonary fibrosis at baseline. She continues to be significantly weak, she was seen by physical therapy, rehab was advised. She was referred to rehab medical management. She'll be tr ansferred today to rehab in a stable condition. Time for discharge 35 minutes Plan - Discharge Summary Discharge Rx Participant: No New Discharge Prescriptions: New Ipratropium-Albuterol Nebulize [Duoneb 0.5 mg-3 mg/3 ml Soln] 3 ml INHALATION RT-QID each Continue Escitalopram [Lexapro] 5 mg PO DAILY Apixaban [Eliquis] 5 mg PO BID amLODIPine [Norvasc] 5 mg PO DAILY Potassium Chloride ER [K-Dur 20] 10 meq PO DAILY diazePAM [Valium] 10 mg PO DAILY PRN PRN Reason: Anxiety Discharge Medication List Apixaban [Eliquis] 5 mg PO BID 03/28/22 [History] Escitalopram [Lexapro] 5 mg PO DAILY 03/28/22 [History] Potassium Chloride ER [K-Dur 20] 10 meq PO DAILY 03/28/22 [History] amLODIPine [Norvasc] 5 mg PO DAILY 03/28/22 [History] diazePAM [Valium] 10 mg PO DAILY PRN 03/28/22 [History] Ipratropium-Albuterol Nebulize [Duoneb 0.5 mg-3 mg/3 ml Soln] 3 ml INHALATION RT-QID each 04/01/22 [Rx] Follow up Appointment(s)/Referral(s): None,Stated [Primary Care Provider] - 1-2 days Patient Instructions/Handouts: Pulmonary Fibrosis (DC), Pneumonia (DC), Urinary Tract Infection in Older Adults (DC)
[2022-04-01 09:49] VITALS: BP 117/71; PULSE 71; TEMP 97.4
[2022-04-01 10:13] LABS: HCT 39.6 % (34.0-46.0); HGB 12.5 gm/dL (11.4-16.0); MCH 32.1 pg (25.0-35.0); MCHC 31.5 g/dL (31.0-37.0); MCV 101.7 fL (80.0-100.0); Macrocytosis Slight; Mean Platelet Volume 8.2; Platelet Count 272 k/uL (150-450); RDW 14.1 % (11.5-15.5)
[2022-04-01] MEDS: amLODIPine 5 MG TAB PO SCH (10:58)
--- NOTE | 2022-04-01 11:16 | P.PN ---
Subjective Progress Note Date: 04/01/22 Principal diagnosis: Sepsis. Pulmonary consult dated 03/29/2022. 86-year-old female seen in the emergency department, in room 28. The patient came into the hospital with multiple complaints including shortness of breath, which is more chronic than acute, sore throat, fever, nausea, and weakness. She states that everything started this past Sunday. The patient does have a history of pulmonary fibrosis, diagnosed by a cloth bin packer, at [facility], by the name of Dr. Mann. The patient does use oxygen at home, from time to time. She also sees a supervisor cured meats at [facility]. Currently, she is not on IV fluids, and is receiving oxygen at 3 L. She did not appear to be in any distress. It appears that she may also have a urinary tract infection. In addition, her N-terminal proBNP was elevated. I don't believe that she is having pneumonia at this time. The patient also has a history of hypertension, and previous pacemaker insertion. She was a lifelong nonsmoker. White count 10, hemoglobin 12.2, hematocrit 37.5, and platelet count 186,000. Sodium 134, potassium 4, chlorides 102, CO2 18, BUN 45, and creatinine 1.17. Anion gap is 14. Initial troponin was 0.051. Subsequently, it was 0.030 and 0.023. N- terminal proBNP was 10,200, and the urine was suggestive of a urinary tract infection, with many white blood cell clumps, greater than 182 WBCs, many bacteria, and leukocyte esterase positive. Chest x-ray shows diffuse interstitial changes, likely secondary to pulmonary fibrosis, although, interstitial pneumonia or more likely interstitial edema, cannot be excluded. Progress note dated 03/30/2022. 86-year-old female seen in consultation yesterday in the emergency department. The patient was discovered to have a urinary tract infection. She does have a history of pulmonary fibrosis, and was seeing a cloth bin packer at [facility]. Her primary care physician is in this area. She also sees a supervisor cured meats at [facility]. Currently, she is getting saline at 50 mL an hour. She's getting oxygen at 2 L. There are gram-negative bacilli in her urine. Labs today include a sodium 135, potassium 3.6, chlorides 103, CO2 18, anion gap 14, BUN 48, and creatinine 1.11. Pro-calcitonin level is 2.57. Progress note dated 03/31/2022. 86-year-old female seen in consultation at couple days ago. She was admitted with a urinary tract infection and possible urosepsis. She does have a history of pulmonary fibrosis, and sees a cloth bin packer at [facility]. Currently, she is on 2 L of oxygen. She's getting saline at 20 mL an hour. The urine sample showed evidence of Escherichia coli and she is on Rocephin. No new labs today. Progress note dated 04/01/2022. 86-year-old female seen for urinary tract infection, secondary to Escherichia coli. In addition, the patient has an established history of pulmonary fibrosis. She was seeing a cloth bin packer at [facility]. After discharge, she'll see us in our office she will be discharged possibly today, to a local shelter. She remains on a couple liters of oxygen. She's being treated for urinary tract infection. White count 11.8, hemoglobin 12.5, hematocrit 39.6, and platelet count 272,000. Sodium 136, potassium 3.8, chlorides 102, CO2 21, anion gap 13, BUN 38, creatinine 1.2. Objective - Vital Signs Vital signs: Vital Signs Temp 97.4 F L 04/01/22 08:33 Pulse 71 04/01/22 08:33 Resp 18 04/01/22 08:33 BP 117/71 04/01/22 08:33 Pulse Ox 97 04/01/22 08:33 FiO2 Intake & Output 03/31/22 04/01/22 04/01/22 18:59 06:59 18:59 Output Total 200 200 Balance -200 -200 Output: Urine 200 200 Other: Voiding Method Toilet Toilet # Voids 1 - Exam No acute distress, oriented 3. Nasal O2 in place at 2 L. HEENT examination is grossly unremarkable. Neck supple. Full range of motion. No adenopathy thyromegaly or neck vein distention. Cardiovascular examination reveals regular rhythm rate. S1-S2 normal. No S3 or S4. No discernible murmur noted. Heart rate 71 bpm. Lungs reveal bibasilar Velcro crackles heard only during inspiration. No wheezes. No rhonchi. Breath sounds equal bilaterally. 2 L saturation is 97 %. Abdomen soft bowel sounds are heard. No masses or tenderness. Extremities are intact. No cyanosis clubbing or edema. Skin is without rash or lesion. Neurologic examination is brief but nonfocal. - Labs CBC & Chem 7: 04/01/22 08:22 04/01/22 08: Labs: Abnormal Lab Results - Last 24 Hours (Table) 04/01/22 04/01/22 Range/Units 08: 08: WBC 11.8 H (3.8-10.6) k/uL MCV 101.7 H (80.0-100.0) fL Sodium 136 L (137-145) mmol/L Carbon Dioxide 21 L (22-30) mmol/L BUN 38 H (7-17) mg/dL Creatinine 1.20 H (0.52-1.04) mg/dL Glucose 163 H (74-99) mg/dL Microbiology - Last 24 Hours (Table) 03/28/22 11:02 Blood Culture - Preliminary Blood No Growth after 72 hours 03/28/22 11:05 Blood Culture - Preliminary Blood No Growth after 72 hours Assessment and Plan Assessment: Nonspecific complaints of fever and weakness, likely related to urinary tract infection, secondary to Escherichia coli. Shortness of breath, with cough, chronic, likely related to interstitial lung disease/pulmonary fibrosis. Rule out interstitial edema/CHF. Doubt pneumonia. History of hypertension. History of pacemaker insertion. Lifelong nontobacco user. Plan: Plan dated 03/29/2022. Currently, the patient is on Zithromax and Rocephin. The Zithromax can likely be discontinued. The patient is likely suffering from a urinary tract infection. I doubt pneumonia. In addition, the patient does not need corticosteroids. That would be contraindicated. Labs, x-rays, and medications are reviewed. The patient will need to follow with her cloth bin packer at [facility]. We did order a pro-calcitonin level. No additional recommendations are made. Prognosis is guarded. Plan dated 03/30/2022. The patient is doing a bit better today. There were gram-negative bacilli in the urine. He is currently on Rocephin. It is likely Escherichia coli but has not been identified as yet. The patient likely does not have pneumonia. She does have interstitial lung disease/pulmonary fibrosis. We will continue to follow make recommendations were appropriate. Pro-calcitonin is elevated sugges ting the urinary tract infection along with the abnormal urinalysis. Labs, x- rays, and medications are all reviewed. Plan dated 03/31/2022. The patient's doing well. From the pulmonary standpoint, she could be discharged. We'll see in the office after discharge. Moving forward, we will see the patient only as needed. No additional recommendations are made. Plan dated 04/01/2022 The patient is doing well. She is currently being treated for urinary tract infection. She'll follow-up with me in the office, after discharge, for her pulmonary fibrosis. Additional recommendations and suggestions are forthcoming. Labs, x-rays, and medications are reviewed. Prognosis is certainly guarded, given her age. Time with Patient: Less than 30
[2022-04-01 15:06] LABS: Band Neutrophils % 1 %; Metamyelocytes % 1 %; Neutrophils % (M) 84 %; Nucleated Red Blood Cells 4 /100 WBC (0-0); Total Cells Counted 200
[2022-04-01 15:07] LABS: Eosinophils # (M) 0.23 k/uL (0-0.7); Lymphocytes # (M) 1.36 k/uL (1.0-4.8); Metamyelocytes # (M) 0.11 k/uL (0); Monocytes # (M) 0.23 k/uL (0-1.0); WBC 11.3 k/uL (3.8-10.6)
== END 2022-04-01 12:51 | disposition home or self-care (01) | DRG 872 ==
LOC: EC 10:11 → 4SSUR 14:11 → 3SCARD 18:32
PROVIDERS: ADMIT Internal Medicine; ATTEND Internal Medicine
DX: A41.51 Sepsis due to Escherichia coli [E. coli] (principal); N39.0 Urinary tract infection, site not specified; E87.2 Acidosis; I48.20 Chronic atrial fibrillation, unspecified; I50.32 Chronic diastolic (congestive) heart failure; R65.20 Severe sepsis without septic shock; B96.20 Unspecified Escherichia coli [E. coli] as the cause of diseases classified elsewhere; I07.1 Rheumatic tricuspid insufficiency; I11.0 Hypertensive heart disease with heart failure; I50.82 Biventricular heart failure; J84.10 Pulmonary fibrosis, unspecified; R09.02 Hypoxemia; Z79.01 Long term (current) use of anticoagulants; Z79.899 Other long term (current) drug therapy; Z95.0 Presence of cardiac pacemaker; Z20.822 Contact with and (suspected) exposure to COVID-19; Z99.81 Dependence on supplemental oxygen; Z71.3 Dietary counseling and surveillance; Z88.2 Allergy status to sulfonamides
CPT/HCPCS: 36415; 71046; 80048; 80053; 81001; 83605; 83735; 83880; 84145; 84484; 85025; 85610; 85730; 87040; 87077; 87086; 87186; 87635; 93005; 93306; 94640; 94760; 96361; 96365; 96366; 96367; 96375; 99285

== ENCOUNTER → 2024-01-18 | Outpatient (CLI) | payer MEDICARE ==
--- NOTE | 2024-01-18 13:18 | CT ---
EXAMINATION TYPE: CT chest wo con DATE OF EXAM: 01/18/2024 COMPARISON: None HISTORY: ILD CT DLP: 590 mGycm. Automated Exposure Control for Dose Reduction was Utilized. TECHNIQUE: CT scan of the thorax is performed without IV contrast. FINDINGS: There is marked honeycombing with a mild apical basal gradient. There is moderate traction bronchiect asis. There is no groundglass density or air space consolidation. There is no pleural effusion or pneumothorax. The heart is enlarged. Evaluation for mediastinal or hilar adenopathy is markedly limited but there a re few scattered borderline-enlarged mediastinal lymph nodes. Limited scanning through the upper abdomen reveals a 20 mm cyst in the anterior segment of the right lobe of the liver. No other significant abnormality seen within the upper abdomen. Grossly the osseous structures are intact. IMPRESSION: 1. Marked interstitial lung disease. 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 2. No definite acute cardiopulmonary disease. 3. Moderate to marked cardiomegaly.
== END | disposition home or self-care (01) ==
LOC: RADCTMAIN 12:13
PROVIDERS: ATTEND Internal Medicine Critical Care Medicine
DX: J84.9 Interstitial pulmonary disease, unspecified (principal); I51.7 Cardiomegaly
CPT/HCPCS: 71250